=== PATIENT | male | born 1930 | race Caucasian/White ===

== ENCOUNTER 2016-09-05 19:49 | Emergency (ER) | payer OTHER ==
[~2016-09-05] VITALS: Ht 172.7 cm; Wt 70.8 kg
[~2016-09-05 19:49] MED LIST: KEFLEX500 MG PO; LASIX40 MG PO; TOPROL XL100 MG PO; WARFARIN SOD5 MG PO
[2016-09-05 21:07] LABS: BASO % 0.4 % (0.0-1.0); EOS # 0.1 10*3/uL (0.0-0.4); EOS % 2.6 % (1.0-4.0); LYMPH % 18.6 % (27.0-41.0); MEAN CELL VOLUME 92.8 fl (80.0-94.0); MEAN CORPUSCULAR HGB 30.9 pg (27.0-31.0); MEAN CORPUSCULAR HGB CONC 33.3 g/dl (33.0-37.0); MEAN PLATELET VOLUME 10.8 fl (9.6-12.3); MONO # 0.6 10*3/uL (0.1-1.0); MONO % 11.7 % (3.0-9.0); NEUT # 3.7 10*3/uL (2.3-7.9); NEUT % 66.3 % (47.0-73.0); PLATELET COUNT AUTOMATED 144 10*3/uL (130-400); RED BLOOD COUNT 4.85 10*6/uL (4.50-5.90); WHITE BLOOD COUNT 5.5 10*3/uL (4.8-10.8)
[2016-09-05 21:17] LABS: BUN 33 mg/dl (7-24); CARBON DIOXIDE 33 mmol/L (21-32); CHLORIDE 103 mmol/L (98-107); EST GLOM FILT AFRICAN AMERICAN > 60 ml/min; GLUCOSE 114 mg/dL (65-99); POTASSIUM 4.7 mmol/L (3.5-5.1); SODIUM 142 mmol/L (136-145)
[2016-09-05 21:28] LABS: INTERNATIONAL NORM RATIO 1.7 (2.0-3.5); PROTHROMBIN TIME 18.4 SECONDS (9.0-12.4)
[2016-10-17] MEDS ORDERED: OPTIVE 0.5%-0.915 ML OP (15:26)
[2016-10-17] MEDS ORDERED: LASIX40 MG PO (15:26)
[2016-10-17] MEDS ORDERED: DEXTROMETHORPH120 ML PO (15:28)
[2016-10-19] MEDS ORDERED: DOXYCYCLINE100 M3 PO (13:20)
[2016-10-19] MEDS ORDERED: VITAMIN D-32000 UNI1 PO (13:20)
[2016-10-19] MEDS ORDERED: MEDROL DOSEPAK4 MG PO (13:20)
[2016-10-19] MEDS ORDERED: PREDNISONE10 MG PO (13:25)
== END 2016-09-05 21:46 | disposition home or self-care (01) ==
LOC: ED 19:49
PROVIDERS: Emergency Medicine Emergency Medical Services
DX: D68.32 Hemorrhagic disorder due to extrinsic circulating anticoagulants (principal); R04.0 Epistaxis; Z79.01 Long term (current) use of anticoagulants; Z90.49 Acquired absence of other specified parts of digestive tract

== ENCOUNTER 2017-07-06 12:15 | Emergency (ER) | payer OTHER ==
[~2017-07-06] VITALS: Ht 172.7 cm; Wt 68.0 kg
[~2017-07-06 12:15] MED LIST changes: +DEXTROMETHORPH120 ML PO; +DOXYCYCLINE100 M3 PO; +MEDROL DOSEPAK4 MG PO; +OPTIVE 0.5%-0.915 ML OP; +PREDNISONE10 MG PO; +VITAMIN D-32000 UNI1 PO
== END 2017-07-06 14:15 | disposition home or self-care (01) ==
LOC: ED 12:15
DX: S20.212A Contusion of left front wall of thorax, initial encounter (principal); I48.91 Unspecified atrial fibrillation; I11.0 Hypertensive heart disease with heart failure; I50.9 Heart failure, unspecified; J44.1 Chronic obstructive pulmonary disease with (acute) exacerbation; Z79.899 Other long term (current) drug therapy; W17.89XA Other fall from one level to another, initial encounter; Y93.89 Activity, other specified; Y92.098 Other place in other non-institutional residence as the place of occurrence of the external cause; Y99.8 Other external cause status